=== PATIENT | female | born 1975 | race Caucasian/White ===

== ENCOUNTER 2017-02-16 10:56 | Day surgery (SDC) | payer OTHER ==
[~2017-02-16] VITALS: Ht 165.1 cm; Wt 81.7 kg
[~2017-02-16 10:56] MED LIST: ADVIL,NUPRIN,M200 MG PO; AUGMENTIN500 MG PO; CLARITIN-D 21 TABLET PO; CLINDAMYCIN HC300 MG PO; HYDROCODON-ACE1 EACH PO; IBUPROFEN600 MG PO; NAPHCON-A EYE D15 ML BOTH EYES; NASONEX17 GM NS; XELJANZ5 MG PO; ZYRTEC10 M3 PO
[2017-02-16 11:50] VITALS: BP 118/82
[2017-02-16 11:54] VITALS: BP 118/72
[2017-02-16 16:10] VITALS: BP 107/59
[2017-02-16 17:15] VITALS: BP 95/53
== END 2017-02-16 17:40 | disposition home or self-care (01) ==
LOC: SDC 10:56
PROC: 0U574ZZ Destruction of Bilateral Fallopian Tubes, Percutaneous Endoscopic Approach (ICD-10-PCS; principal; 2017-02-16)
DX: Z30.2 Encounter for sterilization (principal); M06.9 Rheumatoid arthritis, unspecified; Z88.0 Allergy status to penicillin; Z82.0 Family history of epilepsy and other diseases of the nervous system
CPT/HCPCS: J0330; J1100; J1885; J2250; J2405; J2710; J3010